=== PATIENT | female | born 1945 | race Caucasian/White ===

== ENCOUNTER 2016-06-04 11:31 | Emergency (ER) | payer OTHER ==
[~2016-06-04] VITALS: Ht 179.1 cm; Wt 101.0 kg
[~2016-06-04 11:31] MED LIST: ASPI81 PO; CIPR500T2 PO; CLON.1 PO; COZA50TA PO; ESTR2TAB PO; FENO54TA OR; FISH1000 PO; IRON28TA OR; METH10TA PO; METO25 PO; MULTCAP OR; NEUR800T PO; NOVORP2 SQ; OMEP20TA OR; SUPECAP3 OR; SYNT25TA PO; VITATAB25 OR
[2016-06-04 11:48] VITALS: BP 154/78; PULSE 92; RESP 16; TEMP 98.8; O2SAT 98
[2016-06-04 12:00] LABS: BLOOD, URINE TRACE (NEG); GLUCOSE,URINE NEG (NEG); KETONE, URINE TRACE mg/dL (NEG); NITRITE,URINE NEG (NEG)
[2016-06-04 12:06] LABS: METHOD OF COLLECTION CLEAN CATCH; URINE COLOR YELLOW (YELLW/STRAW)
[2016-06-04 12:07] LABS: COMMENT (UR) CULT NOT INDICATED; CULTURE IF INDICATED CULT NOT INDICATED; RBC, URINE 0-3 /hpf (0-3); SQUAMOUS EPITHELIAL CELL URINE 0-5 /hpf (0-5)
[2016-06-04] MEDS ORDERED: BIOT1SUB PO (12:22)
[2016-06-04] MEDS ORDERED: HYDR12.56 PO (12:22)
[2016-06-04] MEDS ORDERED: VITA10007 PO (12:22)
[2016-06-04] MEDS ORDERED: NEUR600T PO (12:22)
[2016-06-04] MEDS ORDERED: OMEP20TA PO (12:22)
[2016-06-04] MEDS ORDERED: ADVA250A INH (12:22)
[2016-06-04] MEDS ORDERED: CLON0.1T PO (12:22)
[2016-06-04] MEDS ORDERED: ASPI-110 PO (12:22)
[2016-06-04] MEDS ORDERED: METO-309 PO (12:22)
[2016-06-04] MEDS ORDERED: LEVIMIR SQ (12:22)
[2016-06-04] MEDS ORDERED: FENO2.5C PO (12:22)
[2016-06-04] MEDS ORDERED: METF1000 PO (12:22)
[2016-06-04] MEDS ORDERED: VITATAB11 (12:22)
[2016-06-04] MEDS ORDERED: LEVO150T7 PO (12:22)
[2016-06-04] MEDS ORDERED: NOVORP2 SQ (12:22)
[2016-06-04] MEDS ORDERED: VITA100064 PO (12:22)
[2016-06-04] MEDS ORDERED: METH10TA PO (12:22)
[2016-06-04] MEDS ORDERED: SODIUM CHLOR 0.9% 1000 ML INJ 1,000 ML IV SCH (12:27)
[2016-06-04] MEDS ORDERED: ONDANSETRON HCL 4 MG/2 ML VIAL IVP ONE (12:30)
[2016-06-04] MEDS ORDERED: PANTOPRAZOLE SODIUM 40 MG VIAL IVP ONE (12:30)
[2016-06-04] MEDS ORDERED: MORPHINE SULFATE 4 MG/ML INJ IV PUSH ONE (12:30)
[2016-06-04 12:45] VITALS: O2SAT 97
[2016-06-04 12:48] LABS: AUTOMATED NEUTROPHIL # 10.5 TH/MM3 (1.8-7.7); BASOPHIL % 0.4 % (0.0-2.0); EOSINOPHIL # 0.1 TH/MM3 (0-0.4); HEMATOCRIT 39.6 % (35.0-46.0); HEMO FLAGS DIFF FINAL; LYMPH % 9.3 % (9.0-44.0); LYMPHOCYTE # 1.2 TH/MM3 (1.0-4.8); MEAN CELL VOLUME 80.8 FL (80.0-100.0); MEAN CORPUSCULAR HEMOGLOBIN 25.4 PG (27.0-34.0); MEAN CORPUSCULAR HGB CONC 31.4 % (32.0-36.0); MONO % 4.6 % (0.0-8.0); NEUT % 84.7 % (16.0-70.0); PLATELET COUNT 455 TH/MM3 (150-450); RED CELL DISTRIBUTION WIDTH 15.7 % (11.6-17.2); WHITE BLOOD COUNT 12.4 TH/MM3 (4.0-11.0)
--- NOTE | 2016-06-04 12:49 | PD ---
HPI Chief Complaint: Complaint Time Seen by Provider: 12:18 Travel History International Travel<30 days: No Contact w/Intl Traveler<30days: No Traveled to known affect area: No History of Present Illness HPI 70-year-old female complains of right-sided abdominal pain and low abdominal pain. Patient states that the pain started 6 weeks ago. Patient started having hematuria and was seen by personal physician for that. Patient status post LAP-BAND surgery status post reversal with adhesion problem. Patient states that she was seen by urologist, Dr. Garza, and had cystoscopy done on May 28, 2016 which was normal. Patient states that she has increasing pain since then. Patient states that the pain is sharp pain on the right side and does aching pain in the lower abdomen. Patient states the pain is worse on the right low quadrant of the abdomen. Patient denies any pain radiation. Patient denies any fever chills. Patient denies any nausea vomiting diarrhea. Patient denies any dysuria or frequency. Patient denies any fever chills. On a scale of 1-10 the pain is an 8. Patient status post endoscopy done which possible ulcer in November 2016. Patient was seen by Dr. Mason, for GI problem in the past. PFSH Past Medical History Arthritis: No Asthma: No Autoimmune Disease: No Blood Disorders: No Depression: Yes Heart Rhythm Problems: No Cancer: No Cardiovascular Problems: No High Cholesterol: Yes Chest Pain: Yes Congestive Heart Failure: No COPD: Yes Cerebrovascular Accident: No Diabetes: Yes Patient Takes Glucophage: Yes Diminished Hearing: No Endocrine: Yes Gastrointestinal Disorders: Yes GERD: Yes Genitourinary: No Headaches: No Hepatitis: No Hiatal Hernia: Yes Hypertension: Yes Immune Disorder: No Kidney Stones: No Musculoskeletal: No Neurologic: Yes (NEUROPATHY) Psychiatric: Yes Reproductive: No Respiratory: Yes Immunizations Current: Yes Migraines: No Myocardial Infarction: No Renal Failure: No Seizures: No Sleep Apnea: Yes Thyroid Disease: Yes Ulcer: Yes PNEUMOCCOCAL Vaccine (Year): 2 ?: Not Menopausal: Yes : 2 Para: 2 Miscarriage: 0 : 0 Past Surgical History Abdominal Surgery: Yes (LAP BANDING 10/08/[address] [facility] [address] BURNS) Appendectomy: No Cardiac Surgery: No Cholecystectomy: No Ear Surgery: No Endocrine Surgery: No Eye Surgery: No Genitourinary Surgery: No Gynecologic Surgery: No Hysterectomy: Yes (1980) Oral Surgery: No Thoracic Surgery: No Other Surgery: Yes (laminectomy, hysterectomy) Social History Alcohol Use: No Tobacco Use: No Substance Use: No Allergies-Medications (Allergen,Severity, Reaction): Coded Allergies: No Known Allergies (Verified , 06/04/16) Reported Meds & Prescriptions Reported Meds & Active Scripts Active Reported Aspirin 81 (Aspirin) 81 Mg Tabdr 81 Mg PO DAILY Vitamin B Complex (B-Complex Vitamins) 1 Tab Vitamin D (Cholecalciferol) 1,000 Unit Tab 1,000 Units PO DAILY Vitamin C (Ascorbic Acid) 1,000 Mg Tab 1,000 Mg PO DAILY Biotin 5,000 Mcg Subl 10,000 Units PO DAILY Omeprazole 20 Mg Tab 20 Mg PO DAILY [Levimir] 25 Units SQ HS Novolin R Inj (Insulin Human Regular) 1,000 Unit/10 Ml Vial 0 SQ DIRECTED Sliding Scale As Directed. Metformin (Metformin HCl) 1,000 Mg Tab 1,000 Mg PO BIDPC With meals Hydrochlorothiazide 12.5 Mg Tab 12.5 Mg PO DAILY Neurontin (Gabapentin) 600 Mg Tab 1,200 Mg PO BID Fenofibrate 50 Mg Cap 50 Mg PO BID Lopressor (Metoprolol Tartrate) 50 Mg Tab 25 Mg PO BID Clonidine (Clonidine HCl) 0.1 Mg Tab 0.1 Mg PO TID Levothyroxine (Levothyroxine Sodium) 150 Mcg Tab 150 Mcg PO DAILY Methadone (Methadone HCl) 10 Mg Tab 10 Mg PO BID Advair Diskus Inh (Fluticasone-Salmeterol Inh) 250-50 Mcg/Blist Aer 1 Puff INH BID Rinse mouth after use. Review of Systems General / Constitutional: No: Fever Eyes: No: Visual changes HENT: No: Headaches Cardiovascular: No: Chest Pain or Discomfort Respiratory: No: Shortness of Breath Gastrointestinal: Positive: Abdominal Pain Genitourinary: No: Dysuria Musculoskeletal: No: Pain Skin: No Rash Neurologic: No: Weakness Psychiatric: No: Depression Endocrine: No: Polydipsia Hematologic/Lymphatic: No: Easy Bruising Physical Exam Narrative GENERAL: Well-nourished, well-developed patient. SKIN: Warm and dry. HEAD: Normocephalic. EYES: No scleral icterus. No injection or drainage. NECK: Supple, trachea midline. No JVD or lymphadenopathy. CARDIOVASCULAR: Regular rate and rhythm without murmurs, gallops, or rubs. RESPIRATORY: Breath sounds equal bilaterally. No accessory muscle use. GASTROINTESTINAL: Abdomen soft, nondistended. Patient has moderate tenderness on palpation right low quadrant and lower abdomen. No rebound tenderness. No mass. MUSCULOSKELETAL: No cyanosis, or edema. BACK: Nontender without obvious deformity. No CVA tenderness. Neurologic exam normal. Data Data Last Documented VS Vital Signs Date Time Temp Pulse Resp B/P Pulse Ox O2 Delivery O2 Flow Rate FiO2 06/04/16 13:47 68 18 146/78 96 06/04/16 11:48 98.8 Orders Urinalysis - C+S If Indicated (06/04/16 11:50) Complete Blood Count With Diff (06/04/16 12:27) Comprehensive Metabolic Panel (06/04/16 12:27) Lipase (06/04/16 12:27) Prothrombin Time / Inr (Pt) (06/04/16 12:27) Act Partial Throm Time (Ptt) (06/04/16 12:27) Ct Abd/Pel W Iv Contrast(Rout) (06/04/16 12:27) Iv Access Insert/Monitor (06/04/16 12:27) Ecg Monitoring (06/04/16 12:27) Oximetry (06/04/16 12:27) Morphine Inj (Morphine Inj) (06/04/16 12:30) Ondansetron Inj (Zofran Inj) (06/04/16 12:30) Pantoprazole Inj (Protonix Inj) (06/04/16 12:30) Sodium Chlor 0.9% 1000 Ml Inj (Ns 1000 M (06/04/16 12:27) Iodixanol 320 Inj (Rad Ct) (Visipaque 32 (06/04/16 14:04) Labs Laboratory Tests Test 06/04/16 06/04/16 11:54 12:40 Urine Collection Type CLEAN CATCH Urine Color YELLOW Urine Turbidity CLEAR Urine pH 6.0 Urine Specific [place] 1.020 Urine Protein TRACE mg/dL Urine Glucose (UA) NEG mg/dL Urine Ketones TRACE mg/dL Urine Occult Blood TRACE Urine Nitrite NEG Urine Bilirubin NEG Urine Leukocyte Esterase SMALL Urine RBC 0-3 /hpf Urine WBC 3-5 /hpf Urine Squamous Epithelial 0-5 /hpf Cells Urine Amorphous Sediment FEW Microscopic Urinalysis Comment CULT NOT INDICATED White Blood Count 12.4 TH/MM3 Red Blood Count 4.90 MIL/MM3 Hemoglobin 12.4 GM/DL Hematocrit 39.6 % Mean Corpuscular Volume 80.8 FL Mean Corpuscular Hemoglobin 25.4 PG Mean Corpuscular Hemoglobin 31.4 % Concent Red Cell Distribution Width 15.7 % Platelet Count 455 TH/MM3 Mean Platelet Volume 7.9 FL Neutrophils (%) (Auto) 84.7 % Lymphocytes (%) (Auto) 9.3 % Monocytes (%) (Auto) 4.6 % Eosinophils (%) (Auto) 1.0 % Basophils (%) (Auto) 0.4 % Neutrophils # (Auto) 10.5 TH/MM3 Lymphocytes # (Auto) 1.2 TH/MM3 Monocytes # (Auto) 0.6 TH/MM3 Eosinophils # (Auto) 0.1 TH/MM3 Basophils # (Auto) 0.0 TH/MM3 CBC Comment DIFF FINAL Differential Comment Prothrombin Time 11.4 SEC Prothromb Time International 1.0 RATIO Ratio Activated Partial 28.2 SEC Thromboplast Time Sodium Level 140 MEQ/L Potassium Level 4.3 MEQ/L Chloride Level 99 MEQ/L Carbon Dioxide Level 27.0 MEQ/L Anion Gap 14 MEQ/L Blood Urea Nitrogen 19 MG/DL Creatinine 1.30 MG/DL Estimat Glomerular Filtration 40 ML/MIN Rate Random Glucose 183 MG/DL Calcium Level 9.7 MG/DL Total Bilirubin 0.6 MG/DL Aspartate Amino Transf 19 U/L (AST/SGOT) Alanine Aminotransferase 14 U/L (ALT/SGPT) Alkaline Phosphatase 74 U/L Total Protein 7.5 GM/DL Albumin 2.8 GM/DL Lipase 49 U/L [facility] Medical Decision Making Medical Screen Exam Complete: Yes Emergency Medical Condition: Yes Interpretation(s) Last Impressions Abdomen/Pelvis CT 06/04/16 5307 Signed Impressions: Service Date/Time: Saturday, June 04, 2016 13:54 - CONCLUSION: 1. Abdominal ascites. 2. The spleen appears mildly enlarged. This could suggest possible cirrhosis. 3. No free air or intraperitoneal abscess identified. The appendix is not definitively visualized. Fito Tucker MD 1449 PM. CBC WBC 12.4. 84 neutrophil. BUN 19. Creatinine 1.30. Glucose 183. CMP otherwise within normal limit. UA negative. Differential Diagnosis Differential diagnosis including colitis, UTI, pyelonephritis, nephrolithiasis, appendicitis, adhesion pain. Narrative Course 70-year-old female with right low quadrant abdominal pain and low abdominal pain. Status post LAP-BAND surgery status post reversal, adhesion, status post cystoscopy result of normal exam, worsening of the pain since cystoscopy. Normal saline solution 1 25 cc an hour. Morphine 4 mg IV. Zofran 4 mg IV. Protonix 40 mg IV. Diagnosis Primary Impression: Abdominal pain Qualified Code: R10.31 - Right lower quadrant abdominal pain Patient Instructions: General Instructions Additional Instructions: Take medications as needed for pain. Follow-up with personal physician, GI specialist. Return if worse. Med/Other Pt SpecificInfo: No Change to Meds Disposition: 01 DISCHARGE HOME Condition: Stable Kermit Pedraza MD Jun 04, 2016 12:49
[2016-06-04 12:53] VITALS: BP 161/72; PULSE 80; RESP 18; O2SAT 95
[2016-06-04 12:57] LABS: CHLORIDE 99 MEQ/L (98-107); POTASSIUM 4.3 MEQ/L (3.5-5.1); SODIUM (NA) 140 MEQ/L (136-145)
[2016-06-04 13:01] LABS: ANION GAP 14 MEQ/L (5-15); APTT (PATIENT) 28.2 SEC (24.3-30.1); BLOOD UREA NITROGEN 19 MG/DL (7-18); PROTHROMBIN TIME - PATIENT 11.4 SEC (9.8-11.6)
[2016-06-04 13:03] LABS: ALT (GPT) 14 U/L (10-53); AST (GOT) 19 U/L (15-37)
[2016-06-04 13:04] LABS: GLOMERULAR FILTRATION RATE 40 ML/MIN (>89)
[2016-06-04 13:05] LABS: TOTAL BILIRUBIN ADULT 0.6 MG/DL (0.2-1.0)
[2016-06-04 13:06] LABS: ALKALINE PHOSPHATASE 74 U/L (45-117)
[2016-06-04 13:47] VITALS: BP 146/78; PULSE 68; RESP 18; O2SAT 96
[2016-06-04] MEDS ORDERED: IODIXANOL 320 MG/ML 10 ML VIAL (for Rad CT) IV ONE (14:04)
--- NOTE | 2016-06-04 14:34 | RADHPO ---
EXAM DATE/TIME: 06/04/2016 13:54 [facility] COMPARISON: No previous studies available for comparison. INDICATIONS : Right lower abdominal pain. IV CONTRAST: 50 cc Visipaque (iodixanol) IV ORAL CONTRAST: No oral contrast ingested. RADIATION DOSE: 21.99 CTDIvol (mGy) MEDICAL HISTORY : Hypertension. Chronic obstructive pulmonary disease. Diverticulitis. SURGICAL HISTORY : Hysterectomy. ENCOUNTER: Initial ACUITY: 1 month PAIN SCALE: 10/10 LOCATION: Right lower quadrant TECHNIQUE: Volumetric scanning of the abdomen and pelvis was performed. Using automated exposure control and ad justment of the mA and/or kV according to patient size, radiation dose was kept as low as reasonably achievable to obtain optimal diagnostic quality images. FINDINGS: Imaging through the lung bases demonstrates a 0.9 cm calcified granuloma in the anterior aspect of th e left lower lobe. Imaging through the upper abdomen demonstrates a small amount of low density fluid along the anterior margin of the liver. There is fluid within the pelvis as well. Findings would be most consistent wit h ascites. The spleen appears mildly enlarged. The exam could suggest possible cirrhosis. The pancreas, adrenal glands and kidneys are intact. The visualized loops of small and large bowel are normal in caliber. The abdominal aorta is normal in size. There is no retroperitoneal lymphadenopathy. There is ascites within the pelvis. No free air is seen. No iliac or inguinal adenopathy is evident. The visualized osseous structures demonstrate degenerative changes but are otherwise intact CONCLUSION: 1. Abdominal ascites. 2. The spleen appears mildly enlarged. This could suggest possible cirrhosis. 3. No free air or intraperitoneal abscess identified. The appendix is not definitively visualized. Fito Tucker MD on June 04, 2016 at 14:29 Board Certified Radiologist. This report was verified electronically.
[2016-06-04 14:56] VITALS: BP 146/78; PULSE 85; RESP 20; O2SAT 96
[2016-06-05] MEDS ORDERED: LEVEMIR SQ (17:43)
== END 2016-06-04 15:28 | disposition home or self-care (01) ==
LOC: PHED 11:31
DX: R10.31 Right lower quadrant pain (principal); R10.30 Lower abdominal pain, unspecified; E78.00 Pure hypercholesterolemia, unspecified; E11.9 Type 2 diabetes mellitus without complications; I10 Essential (primary) hypertension; E07.9 Disorder of thyroid, unspecified; G47.30 Sleep apnea, unspecified; Z79.84 Long term (current) use of oral hypoglycemic drugs; Z98.890 Other specified postprocedural states; Z87.09 Personal history of other diseases of the respiratory system; Z87.19 Personal history of other diseases of the digestive system; Z86.69 Personal history of other diseases of the nervous system and sense organs
CPT/HCPCS: 74177; 80053; 81001; 83690; 85025; 85610; 85730; 96374; 96375; 99284; C9113; J2270; J2405; J7030; Q9967

== ENCOUNTER 2016-07-11 07:29 | Day surgery (SDC) | payer OTHER ==
[~2016-07-11] VITALS: Ht 179.1 cm; Wt 100.9 kg
[2016-07-11] VITALS (10 sets, daily range): BP systolic 116–177; BP diastolic 62–88; PULSE 61–82; RESP 16–20; TEMP 98–98.2; O2SAT 91–98
[~2016-07-11 07:29] MED LIST changes: +ADVA250A INH; +ASPI-110 PO; -ASPI81 PO; +BIOT1SUB PO; -CIPR500T2 PO; -CLON.1 PO; +CLON0.1T PO; -COZA50TA PO; -ESTR2TAB PO; +FENO2.5C PO; -FENO54TA OR; -FISH1000 PO; +HYDR12.56 PO; -IRON28TA OR; +LEVEMIR SQ; +LEVO150T7 PO; +METF1000 PO; +METO-309 PO; -METO25 PO; -MULTCAP OR; +NEUR600T PO; -NEUR800T PO; -OMEP20TA OR; +OMEP20TA PO; -SUPECAP3 OR; -SYNT25TA PO; +VITA100064 PO; +VITA10007 PO; +VITATAB11; -VITATAB25 OR
[2016-07-11 08:18] LABS: AUTOMATED NEUTROPHIL # 9.1 TH/MM3 (1.8-7.7); BASOPHIL # 0.1 TH/MM3 (0-0.2); BASOPHIL % 0.5 % (0.0-2.0); EOSINOPHIL # 0.2 TH/MM3 (0-0.4); EOSINOPHIL % 2.1 % (0.0-4.0); HEMATOCRIT 37.4 % (35.0-46.0); HEMO FLAGS DIFF FINAL; LYMPH % 11.5 % (9.0-44.0); LYMPHOCYTE # 1.3 TH/MM3 (1.0-4.8); MEAN CELL VOLUME 79.2 FL (80.0-100.0); MEAN CORPUSCULAR HEMOGLOBIN 25.9 PG (27.0-34.0); MEAN CORPUSCULAR HGB CONC 32.7 % (32.0-36.0); MONO % 7.8 % (0.0-8.0); NEUT % 78.1 % (16.0-70.0); PLATELET COUNT 327 TH/MM3 (150-450); RED BLOOD COUNT 4.72 MIL/MM3 (4.00-5.30); WHITE BLOOD COUNT 11.6 TH/MM3 (4.0-11.0)
[2016-07-11 08:24] LABS: APTT (PATIENT) 25.7 SEC (24.3-30.1); PROTHROMBIN TIME - PATIENT 11.1 SEC (9.8-11.6)
[2016-07-11 08:34] LABS: BICARBONATE 31.7 MEQ/L (21.0-32.0); POTASSIUM 3.7 MEQ/L (3.5-5.1)
[2016-07-11] MEDS ORDERED: MIDAZOLAM HCL 5 MG/5 ML VIAL ONE (09:38)
[2016-07-11] MEDS ORDERED: fentaNYL CITRATE 250 MCG/5 ML AMP ONE (09:39)
[2016-07-11] MEDS ORDERED: HEPARIN SODIUM - IV 10,000 UNITS/10 ML VIAL ONE (11:00)
[2016-07-11] MEDS ORDERED: ceFAZolin 2 GM PREMIX 50 ML ONE (11:38)
[2016-07-11] MEDS ORDERED: IODIXANOL 320 MG/ML 50 ML VIAL (for RAD SPEC) I-ARTERIAL ONE (11:57)
[2016-07-11] MEDS: SODIUM CHLOR 0.9% 1000 ML INJ 1,000 ML IV SCH ×2 (12:07→13:05)
[2016-07-11] MEDS ORDERED: ACETAMINOPHEN 325 MG TAB PO PRN (12:15)
[2016-07-11] MEDS ORDERED: oxyCODONE/ACETAMINOPHEN 5 MG/325 MG TAB PO PRN (12:15)
--- NOTE | 2016-07-11 12:16 | PD.RAD ---
Post Procedure Progress Note Pre Procedure Diagnosis: (1) Abdominal pain Post Procedure Diagnosis: (1) Abdominal pain Procedure Date: Jul 11, 2016 Supervising Radiologist: Fabrizio Martin Proceduralist/Assist: Cathi Bolaños RT(R), Liz Moser RT(R)() Anesthesia: Conscious Sedation Plan of Activity Patient to Unit: ROPU Patient Condition: Good See PACS Report for procedural detail/treatment Vascular-Arterial Procedure Procedure 1 Procedure Site: Abdominal Procedure(s): Stent Placement (celiac and mesenteric) Access Access Site(s): Right Femoral Artery Closure Site(s): Right vascular closure device Fabrizio Martin MD Jul 11, 2016 12:16
--- NOTE | 2016-07-11 17:09 | RADRPT ---
EXAM DATE/TIME: 07/11/2016 09:49 [facility] COMPARISON: No previous studies available for comparison. INDICATIONS : Patient with history of abdominal pain in need of angiogram. MEDICAL HISTORY : Esophagitis, Ascites, Splenomegaly, Dysphagia, GERD, HTN, HLD, Fibromyalgia, Hypothyroidism, COPD, Di abetes, Chronic kidney disease, Portal hypertension, Celiac artery syndrome, Ulcerative colitis, Hiat al hernia, Neuropathy SURGICAL HISTORY : Lap-band surgery, Hysterectomy, Laminectomy ENCOUNTER: Initial ACUITY: 2 months PAIN SCORE: 10/10 LOCATION: Lower abdomen FLUORO TIME: 12.7 minutes ACCESS SITE: Right Femoral artery SEDATION TIME: 90 minutes CONTRAST: 1.) 120 cc Visipaque (iodixanol) MEDICATION(S): 1.) 5 mg midazolam (Versed) IV 2.) 250 mcg fentanyl (Sublimaze) IV 3.) 2 g cefazolin (Ancef) IV 4.) 5000 units Heparin IV Intra-procedural antibiotics were given as prescribed above. DEVICE(S): 1.) Superior mesenteric artery Express LD [id number] 75CM stent (balloon expanding) 2.) celiac artery Visi-Pro [id number] 80CM stent (balloon expanding) 3.) Right common femoral artery 6F Angio-Seal PROCEDURE : 1. Ultrasound-guided puncture of the access site. 2. Angiography of the access site prior to closure device. 3. Conscious sedation with continuous EKG and Oximetry monitoring. 4. Percutaneous closure of the access site. 5. Angiography of the abdominal aorta are 6. Angiography of the celiac artery 7. angiography of the superior mesenteric artery 8. Stenting of the celiac artery 9. Stenting of the superior mesenteric artery The risks, benefits and alternatives to the procedure were explained and verbal and written consent w as obtained. The site was prepped in sterile fashion. Full sterile technique was used, including ca p, mask, sterile gloves and gown and a large sterile sheet. Hand hygiene and 2% chlorhexidine and/or betadine/alcohol prep was utilized per protocol for cutaneous antisepsis. The skin and subcutaneous tissues were infiltrated with local anesthetic solution. With ultrasound and fluoroscopic guidance the selected artery was punctured and a vascular sheath was placed. Angiography of the common femoral artery was performed for evaluation prior to percutaneous closure device placement. An Omni Flush catheter was placed in the abdominal aorta and digital abdominal aortogram was performe d in AP and lateral projections. 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 Following systemic heparinization a hook catheter was used to gain access to the superior mesenteric artery and the guide sheath was placed at the ostium. A 6 mm stent was inflated across the ostium wit h complete resolution of the stenosis and followup angiography demonstrates good position of the sten t. Next the celiac axis was catheterized and a guidewire was advanced into the splenic artery. The sheat h was placed at the ostium and a 6 mm stent was deployed across it without difficulty. Followup angio graphy demonstrates no residual stenosis. Hemostasis was obtained with the prescribed medicated closure device. Conscious sedation was perform ed with the prescribed dosages and duration as above. EKG and oximetry remained stable throughout th e procedure. The patient was sent to post anesthesia recovery in stable condition. CONCLUSION: 1. Uncomplicated stenting of the celiac artery and superior mesenteric artery Fabrizio Martin MD on July 11, 2016 at 16:56 Board Certified Radiologist. This report was verified electronically.
== END 2016-07-11 16:10 | disposition home or self-care (01) ==
LOC: HROP 07:29 → HRIP 07:36 → HROP 16:10
PROVIDERS: ATTEND Internal Medicine Gastroenterology
DX: K55.1 Chronic vascular disorders of intestine (principal); R10.9 Unspecified abdominal pain; M79.7 Fibromyalgia; I12.9 Hypertensive chronic kidney disease with stage 1 through stage 4 chronic kidney disease, or unspecified chronic kidney disease; N18.9 Chronic kidney disease, unspecified; E11.22 Type 2 diabetes mellitus with diabetic chronic kidney disease; E03.9 Hypothyroidism, unspecified; E78.5 Hyperlipidemia, unspecified; J44.9 Chronic obstructive pulmonary disease, unspecified; K44.9 Diaphragmatic hernia without obstruction or gangrene; K21.0 Gastro-esophageal reflux disease with esophagitis
CPT/HCPCS: 36245; 37236; 37237; 76937; 80048; 85025; 85610; 85730; 99152; 99153; C1760; C1769; C1876; C1887; C1894; G0269; J0690; J1644; J2250; J3010; J7030; Q9967

== ENCOUNTER 2016-07-22 13:25 | Day surgery (SDC) | payer OTHER ==
[2016-07-22 13:45] VITALS: BP 119/65; PULSE 67; RESP 20; O2SAT 92
== END 2016-07-22 13:55 | disposition home or self-care (01) ==
LOC: HROP 13:25 → HRIP 13:26 → HROP 13:55
PROVIDERS: ATTEND Radiology Body Imaging
DX: R10.9 Unspecified abdominal pain (principal)